=== PATIENT | female | born 1960 | race Caucasian/White ===

== ENCOUNTER 2019-12-22 18:38 | Emergency (ER) | payer MEDICAID ==
[~2019-12-22] VITALS: Ht 165.1 cm; Wt 63.5 kg
[2019-12-22 21:46] VITALS: BP 122/82
== END 2019-12-22 21:50 | disposition home or self-care (01) ==
LOC: ER 18:38
DX: M54.5 Low back pain (principal)
CPT/HCPCS: 72131; 99284